=== PATIENT | female | born 1950 | race Caucasian/White ===

== ENCOUNTER → 2017-11-14 | Outpatient (CLI) | payer MEDICARE, MEDICAID ==
[~2017-11-14] MED LIST: ACETAMINOPHEN325 M1 PO; ALDACTONE25 MG PO; AMOXICILLIN875 MG PO; ASPIRIN EC325 M1; BAYER CHEWABLE81 MG PO; BENZONATATE100 MG PO; CALCIUM 600 +1 EAC8 PO; CENTRUM COMPLE1 EACH PO; CHLORTHALIDONE25 MG; CLONIDINE0.1 PO; DILTIAZEM 24HR180 M1 PO; EFFIENT10 MG PO; FISH OIL 1,0001 EAC5 PO; FLONASE 0.05%50 MCG NASAL; HYDROCHLOROTHIA25 M2 PO; KLOR-CON; KLOR-CON 1010 MEQ PO; LISINOPRIL; LISINOPRIL40 MG PO; MAGNESIUM OXID400 MG PO; MUCINEX TA600 MG/TA1 PO; NITROFURANTOIN100 MG PO; NORCO 5-325 TA1 EACH PO; NORVASC10 MG PO; PRADAXA150 MG PO; PRAVASTATIN SOD10 MG PO; PREDNISONE 10 M10 M1 PO; RYTHMOL 150MG150 M1 PO; SOTALOL80 MG PO; TIKOSYN125 MCG PO; TOPROL XL100 MG; TOPROL XL50 MG PO; VITAMIN C1000 MG PO; VITAMIN D3400 UNIT PO; VITAMIN E1000 UNI3 PO; XANAX 0.25 MG0.25 MG PO
== END ==
LOC: M.RAD 11:51
DX: M19.071 Primary osteoarthritis, right ankle and foot (principal); M77.31 Calcaneal spur, right foot

== ENCOUNTER → 2018-05-12 | Outpatient (CLI) | payer MEDICARE, MEDICAID ==
[2018-05-12 12:17] LABS: ABSOLUTE EOSINOPHILS 0.1 thou/uL (0.0-0.7); ABSOLUTE LYMPHOCYTES 1.8 thou/uL (0.8-5.3); ABSOLUTE MONOCYTES 0.4 thou/uL (0.0-1.2); ABSOLUTE NEUTROPHILS 3.7 thou/uL (1.6-8.1); BASOPHILS 0.7 %; EOSINOPHILS 2.1 %; HEMATOCRIT 46.4 % (37.0-47.0); HEMOGLOBIN 15.8 gm/dL (12.0-15.0); LYMPHOCYTES 30.1 %; MCH 29.8 pg (26.0-34.0); MCHC 33.9 g/dL (28.0-37.0); MCV 87.8 fL (80.0-100.0); MONOCYTES 6.1 %; MPV 8.2 fl. (7.2-11.1); NUCLEATED RBCS 0 /100WBC; PLATELET COUNT* 221 thou/uL (150-400); RBC 5.29 mil/uL (4.20-5.00); RDW-CV 13.6 % (10.5-14.5); WBC 6.1 thou/uL (4.0-11.0)
[2018-05-12 12:34] LABS: ALBUMIN 3.6 g/dL (3.4-5.0); CALCIUM 9.3 mg/dL (8.5-10.1); CREATININE 1.1 mg/dL (0.6-1.3); POTASSIUM 4.7 mmol/L (3.5-5.1); TOTAL BILIRUBIN 0.4 mg/dL (<0.1-1.0)
--- NOTE | 2018-05-13 10:50 | EKG ---
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
== END ==
LOC: M.LAB 11:04
PROVIDERS: Surgery
DX: Z01.818 Encounter for other preprocedural examination (principal); R06.02 Shortness of breath; I48.0 Paroxysmal atrial fibrillation; E78.5 Hyperlipidemia, unspecified; I25.10 Atherosclerotic heart disease of native coronary artery without angina pectoris

== ENCOUNTER 2018-07-11 10:40 | Emergency (ER) | payer MEDICARE, MEDICAID ==
[~2018-07-11] VITALS: Ht 165.1 cm; Wt 111.6 kg
[~2018-07-11 10:40] MED LIST changes: +LISINOPRIL20 MG PO; -LISINOPRIL40 MG PO
[2018-07-11 10:49] VITALS: BP 124/90
[2018-07-11] MEDS ORDERED: SORINE 80 MG TA80 M1 PO (10:56)
[2018-07-11] MEDS ORDERED: ELIQUIS2.5 MG PO (10:57)
[2018-07-11] MEDS ORDERED: PEPCID20 MG PO (10:57)
[2018-07-11] MEDS ORDERED: FLONASE 0.05%50 MCG NASAL (10:57)
[2018-07-11] MEDS ORDERED: FLEXERIL PO (11:08)
[2018-07-11] MEDS ORDERED: HYCET 7.5 MG-3473 ML PO (11:08)
== END 2018-07-11 11:15 | disposition home or self-care (01) ==
LOC: M.ERS 10:40
DX: M54.31 Sciatica, right side (principal); I10 Essential (primary) hypertension; Z90.49 Acquired absence of other specified parts of digestive tract; I48.91 Unspecified atrial fibrillation; Z86.73 Personal history of transient ischemic attack (TIA), and cerebral infarction without residual deficits; Z88.5 Allergy status to narcotic agent; Z88.8 Allergy status to other drugs, medicaments and biological substances

== ENCOUNTER → 2018-09-14 | Outpatient (CLI) | payer MEDICARE, MEDICAID ==
[~2018-09-14] MED LIST changes: +ELIQUIS2.5 MG PO; +FLEXERIL PO; +HYCET 7.5 MG-3473 ML PO; +PEPCID20 MG PO; +SORINE 80 MG TA80 M1 PO
[2018-09-14 14:23] LABS: CALCIUM 9.8 mg/dL (8.5-10.1); CREATININE 1.2 mg/dL (0.6-1.3); POTASSIUM 4.6 mmol/L (3.5-5.1)
== END ==
LOC: M.LAB 13:56
PROVIDERS: Registered Nurse
DX: I10 Essential (primary) hypertension (principal)

== ENCOUNTER 2018-10-17 15:07 | Emergency (ER) | payer MEDICARE, MEDICAID ==
[~2018-10-17] VITALS: Ht 165.1 cm; Wt 102.1 kg
[2018-10-17] MEDS ORDERED: MULTAQ 400 MG400 MG PO (15:39)
[2018-10-17] MEDS ORDERED: LOPRESSOR50 PO (15:40)
[2018-10-17] MEDS ORDERED: MERIBIN5 MG PO (15:41)
[2018-10-17 16:09] LABS: ABSOLUTE BASOPHILS 0.1 thou/uL (0.0-0.2); ABSOLUTE EOSINOPHILS 0.1 thou/uL (0.0-0.7); ABSOLUTE LYMPHOCYTES 2.7 thou/uL (0.8-5.3); ABSOLUTE MONOCYTES 0.4 thou/uL (0.0-1.2); ABSOLUTE NEUTROPHILS 3.7 thou/uL (1.6-8.1); BASOPHILS 0.7 %; EOSINOPHILS 1.2 %; HEMATOCRIT 44.5 % (37.0-47.0); HEMOGLOBIN 15.3 gm/dL (12.0-15.0); LYMPHOCYTES 38.9 %; MCH 29.1 pg (26.0-34.0); MCHC 34.5 g/dL (28.0-37.0); MCV 84.2 fL (80.0-100.0); MONOCYTES 5.5 %; MPV 9.1 fl. (7.2-11.1); NUCLEATED RBCS 0 /100WBC; PLATELET COUNT* 212 thou/uL (150-400); POLYS 53.7 %; RBC 5.28 mil/uL (4.20-5.00); RDW-CV 14.9 % (10.5-14.5)
[2018-10-17 16:24] LABS: URINE BILIRUBIN NEGATIVE (Negative); URINE BLOOD 3+ (Negative); URINE CLARITY CLOUDY; URINE COLOR BROWN; URINE GLUCOSE-RANDOM NEGATIVE (Negative); URINE KETONES NEGATIVE (Negative); URINE LEUKOCYTES-REFLEX NEGATIVE (Negative); URINE NITRITE-REFLEX NEGATIVE (Negative); URINE PROTEIN TRACE (Negative); URINE UROBILINOGEN 0.2 E.U./dl (0.2-1.0)
[2018-10-17 16:44] LABS: ALBUMIN 3.5 g/dL (3.4-5.0); CALCIUM 9.6 mg/dL (8.5-10.1); CREATININE 1.5 mg/dL (0.6-1.3); POTASSIUM 4.7 mmol/L (3.5-5.1); TOTAL BILIRUBIN 0.5 mg/dL (<0.1-1.0); TOTAL PROTEIN 6.8 g/dL (6.4-8.2)
[2018-10-17 16:56] LABS: SQUAMOUS >10 Many /LPF (0-3)
[2018-10-17 16:58] LABS: BACTERIA-REFLEX >30 Many /HPF (None Seen); CASTS None Seen /LPF (None Seen); CRYSTALS None Seen /LPF (None Seen); MUCUS None Seen strn/LPF (None Seen); URINE RBC >20 Many /HPF (0-2); URINE WBC-REFLEX 6-15 Few /HPF (0-5)
[2018-10-17] MEDS ORDERED: CIPROFLOXACIN500 M1 PO (17:06)
[2018-10-17] MEDS ORDERED: NORCO 5-325 TA1 EACH PO (17:06)
[2018-10-17 17:22] VITALS: BP 110/45
== END 2018-10-17 17:25 | disposition home or self-care (01) ==
LOC: M.ERS 15:07
PROVIDERS: Family Medicine
DX: N39.0 Urinary tract infection, site not specified (principal); M54.31 Sciatica, right side; I10 Essential (primary) hypertension; I48.91 Unspecified atrial fibrillation; G62.9 Polyneuropathy, unspecified; Z87.891 Personal history of nicotine dependence; Z88.5 Allergy status to narcotic agent; Z88.8 Allergy status to other drugs, medicaments and biological substances; Z90.49 Acquired absence of other specified parts of digestive tract; Z86.73 Personal history of transient ischemic attack (TIA), and cerebral infarction without residual deficits

== ENCOUNTER → 2018-10-28 | Outpatient (CLI) | payer MEDICARE, MEDICAID ==
[~2018-10-28] MED LIST changes: +CIPROFLOXACIN500 M1 PO; +LOPRESSOR50 PO; +MERIBIN5 MG PO; +MULTAQ 400 MG400 MG PO
== END ==
LOC: M.MRI 15:50
DX: M51.27 Other intervertebral disc displacement, lumbosacral region (principal); M48.07 Spinal stenosis, lumbosacral region; M54.41 Lumbago with sciatica, right side; M25.78 Osteophyte, vertebrae; M71.38 Other bursal cyst, other site

== ENCOUNTER → 2018-11-26 | Outpatient (CLI) | payer MEDICARE, MEDICAID ==
[~2018-11-26] MED LIST changes: +CITRACAL + D M1 EACH PO
--- NOTE | ~2018-11-26 | PAINCON ---
[facility] [address] [place] [address] PAIN MANAGEMENT CONSULTATION Name: CHARI GRANT Room: [facility] ALENA DuenasDank.#: [id number] Admission: 11/26/18 Attend Phys: Miley Lake MD Discharge: Date of : 46 Report #: [id number] THIS REPORT FOR: //name// CC: Alona Lake DATE OF SERVICE: 11/26/2018 CHIEF COMPLAINT: Low back pain. HISTORY OF PRESENT ILLNESS: The patient is a 68-year-old female who has been having pain and discomfort, which has been quite problematic since 06/2018. She describes the pain as constant. It involves her back. She is experiencing pain that is running down into her leg and involving her foot. She notes that lying on her right side, makes it worse. Walking, sitting, and reclining is somewhat helpful. She describes it as continuous, crushing and rates it as a 3-4/10. The patient states that she has had some pain about 15 years ago. It was the sciatic type pain that ran down into her leg. She rates this pain as a 10/10. The patient did move some furniture around earlier this year. She was told that she had some compression of the nerve on her MRI. The patient was provided with steroids. She has come to the pain clinic for evaluation and treatment, possibility of epidural steroid injections. ALLERGIES: MORPHINE, ANAPHYLAXIS AND SHORTNESS OF BREATH. CURRENT MEDICATIONS: Eliquis 2.5 mg b.i.d., aspirin 81 mg 1 tablet daily, vitamin D ____ Citracal, diltiazem 180 mg, Multaq 400 mg b.i.d., Pepcid 20 mg, hydrocodone 5/325, lisinopril 10 mg, Medrol Dosepak, metoprolol 50 mg, potassium 20 mEq, Aldactone, and vitamin B12. PAST MEDICAL HISTORY: 1. Coronary artery disease. 2. Atrial fibrillation history. 3. Coronary artery disease. 4. Gastroesophageal reflux. 5. Hypertension. 6. Hyperlipidemia. 7. Ischemic stroke. 8. Obstructive sleep apnea. 9. Paroxysmal atrial fibrillation. 10. Status post bariatric surgery. PAST SURGICAL HISTORY: Appendectomy, bariatric surgery in 05/2018, cholecystectomy, hernia repair, hysterectomy, laparoscopic partial in 05/2018, gastrectomy with EGD, stent placed in heart, and a gastric bypass in 2017. [place] [address] PAIN MANAGEMENT CONSULTATION Name: CHARI GRANT Room: [facility]#: [id number] Admission: 11/26/18 Attend Phys: Miley Lake MD Discharge: Date of : 46 Report #: [id number] SOCIAL HISTORY: She is retired, has not worked for the last 7 years. REVIEW OF SYSTEMS: Generally good health, recent weight changes, fatigue, weakness, wears glasses, blurred vision, glaucoma/cataracts, hearing loss, chronic sinus problems, heart trouble, palpitations, joint pain, joint stiffness, weakness of the muscles, back pain, hair and nail changes, varicose veins, numbness and tingling sensation, stroke, memory loss, depression, bleeding tendencies. LABORATORY DATA: MRI of the lumbar spine dated 10/28/2018 reveals: 1. L4-L5, there is mild broad-based disk bulging. There is facet arthropathy, slightly greater on the right. There is a small 3 mm synovial cyst arising from the medial aspect of the facet and the epidural space. The central spinal canal is not grossly narrowed. There is no evidence of neural foraminal stenosis. 2. L5-S1, there is a small central disk protrusion. There is moderate facet arthropathy. A right osteophyte contacts the descending right S1 nerve root. The central spinal canal is not grossly narrowed. There is moderate bilateral neural foraminal narrowing secondary to the foraminal disk bulging and facet disease. PAIN CLINIC ASSESSMENT AND PQRS: 1. The patient is not being treated for rheumatoid arthritis. The patient does have a history of some arthritic pain in the low back area. She uses a cane. 2. The patient is not being treated for rheumatoid arthritis. 3. Height 5 feet 6 inches, weight 222 pounds, BMI is 36. 4. Vital signs: Blood pressure 120/66, heart rate 59, respiratory rate 16, room air saturation 96%, temperature is 98.6. 5. Pain intensity 09/27/2018. 6. Fall history: The patient has not fallen in the last 3 months. 7. Blood thinner. The patient is on a blood thinning medication. 8. Hypertension. The patient is being treated for hypertension. 9. Opioids greater than 6 weeks. The patient is not on a regular opioid regimen. 10. Risk assessment tool, low for opioid use. 11. Recreational drug use. The patient denies use of recreational drugs. 12. Tobacco: The patient does not smoke. 14. Alcoholic beverages. The patient denies use of alcoholic beverages. PHYSICAL EXAMINATION: GENERAL: The patient is a well-developed, well-nourished white female. Appears her stated age. She is alert and oriented x 3. Affect is appropriate. Speech is fluent. HEENT: Normocephalic, atraumatic. Extraocular eye muscles intact. Sclerae nonicteric. Mucous membranes are moist. MUSCULOSKELETAL: Upper extremity muscle strength is judged to be 4+/5 for the major muscle groups in the upper extremity. Deep tendon reflexes at the [facility] [address] [place] [address] PAIN MANAGEMENT CONSULTATION Name: CHARI GRANT Room: [facility].#: [id number] Admission: 11/26/18 Attend Phys: Miley Lake MD Discharge: Date of : 46 Report #: [id number] are trace bilaterally. The patient has some pain and discomfort in the lower portion of her back. This is near the L5-S1 area near the paraspinous muscle areas. The patient is complaining of pain and discomfort in the L5-S1 area with radiation down into her legs. States that she had pain similar to this about 20 years ago. She notes marginal increase in pain with left and right lateral bending, left and right rotation. The patient does walk and ambulates with a cane at times. IMPRESSION: 1. Back pain in the L5-S1 dermatomal distribution. The patient states that she had similar pain about 20 years ago. She would like to proceed with treatment. 2. Coronary artery disease. 3. Atrial fibrillation history. 4. Coronary artery disease. 5. Gastroesophageal reflux. 6. Hypertension. 7. Hyperlipidemia. 8. Ischemic stroke. 9. Obstructive sleep apnea. 10. Paroxysmal atrial fibrillation. 11. Status post bariatric surgery. RECOMMENDATIONS: We discussed treatment options with the patient. It appears that she does have pain and discomfort, which is tracking along the L5-S1 dermatomal distribution indicating sciatic nerve dysfunction/irritation. We will consider an epidural steroid injection. The patient is currently taking Eliquis. We would recommend the patient stop taking her medication. She can then return to the pain clinic at which time we will consider an epidural steroid injection. Risks and benefits of the procedure were discussed with the patient. They include but are not limited to infection, increased muscle soreness, headache, bleeding, worsening of pain, nerve damage, spinal headache. She will follow up in the near future. We will consider the epidural steroid injection with the hope that will decrease some of the pain and discomfort she is experiencing in the sciatic nerve roots. By: [id number]. [place] MD /crystal
== END ==
LOC: M.PC 09:10
DX: M54.5 Low back pain (principal); I25.10 Atherosclerotic heart disease of native coronary artery without angina pectoris; I48.91 Unspecified atrial fibrillation; K21.9 Gastro-esophageal reflux disease without esophagitis; I10 Essential (primary) hypertension; E78.5 Hyperlipidemia, unspecified; G47.33 Obstructive sleep apnea (adult) (pediatric); I48.0 Paroxysmal atrial fibrillation; I63.9 Cerebral infarction, unspecified; Z98.84 Bariatric surgery status

== ENCOUNTER → 2020-01-26 | Outpatient (CLI) | payer MEDICARE, MEDICAID ==
[2020-01-26 09:51] LABS: ABSOLUTE EOSINOPHILS 0.1 thou/uL (0.0-0.7); ABSOLUTE LYMPHOCYTES 1.6 thou/uL (0.8-5.3); ABSOLUTE MONOCYTES 0.4 thou/uL (0.0-1.2); BASOPHILS 0.8 %; EOSINOPHILS 1.6 %; HEMATOCRIT 42.9 % (37.0-47.0); HEMOGLOBIN 14.7 gm/dL (12.0-15.0); LYMPHOCYTES 31.6 %; MCH 29.7 pg (26.0-34.0); MCHC 34.3 g/dL (28.0-37.0); MCV 86.7 fL (80.0-100.0); MONOCYTES 7.5 %; NUCLEATED RBCS 0 /100WBC; PLATELET COUNT* 239 thou/uL (150-400); POLYS 58.5 %; RBC 4.95 mil/uL (4.20-5.00); RDW-CV 12.9 % (10.5-14.5); WBC 5.2 thou/uL (4.0-11.0)
[2020-01-26 10:13] LABS: ALBUMIN 3.6 g/dL (3.4-5.0); ALKALINE PHOSPHATASE 55 U/L (46-116); ANION GAP 3 mmol/L (7-16); BUN 22 mg/dL (7-18); CALCIUM 9.4 mg/dL (8.5-10.1); CHLORIDE 99 mmol/L (98-107); CHOLESTEROL 194 mg/dL (<200); CO2 32 mmol/L (21-32); CREATININE 1.1 mg/dL (0.6-1.3); GLUCOSE 97 mg/dL (70-99); HDL CHOLESTEROL 45 mg/dL (>40); LDL CHOLESTEROL 125 mg/dL (<100); MAGNESIUM 2.1 mg/dL (1.8-2.4); NT-PRO BRAIN NAT PEPTIDE 140 pg/mL (<300); POTASSIUM 4.5 mmol/L (3.5-5.1); SERUM ASSESSMENT Clear; SGOT 15 U/L (15-37); SGPT 24 U/L (30-65); SODIUM 134 mmol/L (136-145); TC:HDL 4.3 Ratio (Not establshd); TOTAL BILIRUBIN 0.5 mg/dL (<0.1-1.0); TOTAL PROTEIN 6.8 g/dL (6.4-8.2); TRIGLYCERIDE 122 mg/dL (<150); VLDL 24 mg/dL (<40)
== END ==
LOC: M.LAB 09:26
PROVIDERS: ATTEND Nurse Practitioner
DX: T14.8XXA Other injury of unspecified body region, initial encounter (principal); I48.0 Paroxysmal atrial fibrillation; E78.2 Mixed hyperlipidemia; R60.9 Edema, unspecified; X58.XXXA Exposure to other specified factors, initial encounter; Y93.89 Activity, other specified; Y92.89 Other specified places as the place of occurrence of the external cause; Y99.8 Other external cause status